=== PATIENT | female | born 1985 | race Caucasian/White ===

== ENCOUNTER 2019-12-01 17:31 | Emergency (ER) | payer BC ==
[~2019-12-01] VITALS: Ht 167.6 cm; Wt 98.9 kg
[2019-12-01] MEDS ORDERED: LEVOXYL75 MCG PO (17:44)
[2019-12-01] MEDS ORDERED: TOPROL XL25 MG PO (17:44)
[2019-12-01 18:32] VITALS: BP 122/85
== END 2019-12-01 18:33 | disposition home or self-care (01) ==
LOC: M.ERS 17:31
DX: S61.011A Laceration without foreign body of right thumb without damage to nail, initial encounter (principal); E03.9 Hypothyroidism, unspecified; Z90.49 Acquired absence of other specified parts of digestive tract; Z88.8 Allergy status to other drugs, medicaments and biological substances; W26.8XXA Contact with other sharp object(s), not elsewhere classified, initial encounter; Y93.89 Activity, other specified; Y92.89 Other specified places as the place of occurrence of the external cause; Y99.8 Other external cause status